=== PATIENT | female | born 1975 | race Caucasian/White ===

== ENCOUNTER 2020-02-07 09:59 | Outpatient (CLI) | payer OTHER, SELFPAY ==
[2020-02-07 10:22] LABS: Hematocrit 40.9 % (35.0-49.0); Hemoglobin 13.9 g/dL (12.0-15.0); Mean Corpuscular Hemoglobin 28.8 pg (27.0-31.0); Mean Corpuscular Volume 84.9 fL (78.0-102.0); Mean Platelet Volume 10.3 fl (9.2-11.8); Platelet Count Result 327 K/mm3 (150-420); Red Blood Count 4.82 M/mm3 (4.20-5.40); Red Cell Distribution Width 12.3 % (11.6-14.4); White Blood Count 6.6 K/mm3 (4.8-10.8)
[2020-02-07 11:24] LABS: Alanine Aminotransferase 23 U/L (14-59); Albumin Level 3.8 g/dL (3.4-5.0); Alkaline Phosphatase 90 U/L (46-116); Anion Gap 14.3 mmol/L (7-16); Aspartate Amino Transferase 14 U/L (15-37); Bilirubin,Total 0.3 mg/dL (0.00-1.00); Blood Urea Nitrogen 18 mg/dL (7-18); Calcium 8.8 mg/dL (8.5-10.1); Carbon Dioxide 26 mmol/L (21-32); Chloride 105 mmol/L (98-108); Estimated Glomerular Filt Rate > 60; Folic Acid 19.8 ng/mL (8.6->20); Glucose 161 mg/dL (70-99); Osmolality Calculated 296 mOsm/kg (285-295); Potassium 4.3 mmol/L (3.5-5.1); Sodium 141 mmol/L (136-145); Total Protein 6.9 g/dL (6.4-8.2); Vitamin B12 324 pg/mL (193-986)
[2020-02-07 11:34] LABS: Thyroid Stimulating Hormone Reflex 0.94 u/IU/mL (0.36-3.74)
== END 2020-02-07 10:00 | disposition home or self-care (01) ==
PROVIDERS: PCP Family Medicine; Visit Provider Family Medicine
DX: I10 Essential (primary) hypertension (principal)
CPT/HCPCS: 36415; 80053; 82607; 82746; 84443; 85027

== ENCOUNTER 2020-04-15 08:23 | Outpatient (CLI) | payer OTHER, SELFPAY ==
--- NOTE | ~2020-04-15 | XR_ITS ---
XR shoulder RT min 2V DATE: 04/15/2020 08:57 INDICATION: Bilateral upper extremity pain including right shoulder pain TECHNIQUE: 4 views COMPARISON: None FINDINGS: No fracture or dislocation, periosteal reaction or bone destruction. There is mild degenera tive change at the acromioclavicular joint. No abnormal soft tissue calcification of the right should er. IMPRESSION: Mild degenerative change at right acromioclavicular joint Reviewed, dictated and finalized at location B.
--- NOTE | ~2020-04-15 | XR_ITS ---
XR elbow RT 2V DATE: 04/15/2020 08:57 INDICATION: Right elbow pain TECHNIQUE: AP and lateral views COMPARISON: None FINDINGS: No fracture or dislocation or joint effusion. No periosteal reaction or bone destruction. IMPRESSION: Negative Reviewed, dictated and finalized at location B. IMPRESSION: Negative
--- NOTE | ~2020-04-15 | XR_ITS ---
XR shoulder LT min 2V DATE: 04/15/2020 08:58 INDICATION: Bilateral upper extremity pain, left shoulder pain TECHNIQUE: 4 views COMPARISON: None FINDINGS: No fracture or dislocation, periosteal reaction or bone destruction or abnormal soft tissue calcification. Normal alignment at the acromioclavicular and glenohumeral joints. IMPRESSION: No significant abnormality Reviewed, dictated and finalized at location B. IMPRESSION: No significant abnormality
--- NOTE | ~2020-04-15 | XR_ITS ---
XR hand LT min 3V DATE: 04/15/2020 08:57 INDICATION: Bilateral upper extremity pain, left hand pain TECHNIQUE: AP and lateral views COMPARISON: None FINDINGS: No fracture or dislocation, periosteal reaction or bone destruction. Joint spaces are relat ively preserved. No erosive change or chondrocalcinosis. IMPRESSION: No significant abnormality Reviewed, dictated and finalized at location B. IMPRESSION: No significant abnormality
--- NOTE | ~2020-04-15 | XR_ITS ---
XR elbow LT 2V DATE: 04/15/2020 08:57 INDICATION: Left elbow pain TECHNIQUE: AP and lateral views COMPARISON: None FINDINGS: No fracture or dislocation or joint effusion. No periosteal reaction or bone destruction. J oint spaces are preserved. IMPRESSION: Negative Reviewed, dictated and finalized at location B. IMPRESSION: Negative
--- NOTE | ~2020-04-15 | XR_ITS ---
XR hand RT min 3V DATE: 04/15/2020 08:57 INDICATION: Bilateral upper extremity joint pain including right hand pain TECHNIQUE: AP and lateral views COMPARISON: None FINDINGS: No fracture, dislocation, periosteal reaction or bone destruction or significant joint spac e narrowing. No erosive change or chondrocalcinosis. IMPRESSION: No significant abnormality Reviewed, dictated and finalized at location B. IMPRESSION: No significant abnormality
[2020-04-15 09:38] LABS: Erythrocyte Sedimentation Rate 7 mm/hr (0-15)
[2020-04-15 10:00] LABS: CRP 0.9 mg/dL (0.0-0.9)
[2020-04-15 10:06] LABS: Rheumatoid Factor Screen Negative (Negative)
[2020-04-18 20:21] LABS: ANA Cascade Screen Negative (Negative)
== END 2020-04-15 08:24 | disposition home or self-care (01) ==
LOC: CHSLAB 08:26
PROVIDERS: PCP Family Medicine; Visit Provider Family Medicine
DX: R52 Pain, unspecified (principal)
CPT/HCPCS: 36415; 73030; 73070; 73130; 85652; 86038; 86140; 86430

== ENCOUNTER 2020-05-12 15:37 | Emergency (ER) | payer OTHER, SELFPAY ==
--- NOTE | ~2020-05-12 | XR_ITS ---
XR hand RT 2V 05/12/2020 16:07 INDICATION: Right hand and thumb pain PROCEDURE: 2 views right hand COMPARISON: 04/15/2020 FINDINGS: Fracture, dislocation or subluxation is not identified. The soft tissues appear within norm al limits. No foreign bodies are identified. IMPRESSION: 1: NO ACUTE BONE OR JOINT ABNORMALITY IDENTIFIED. Reviewed, dictated and finalized at location A.
[2020-05-12 15:50] VITALS: BP 152/87; PULSE 70; RESP 18; TEMP 37.2; O2SAT 99
--- NOTE | 2020-05-12 16:22 | ED.UPPEXIN ---
HPI - Extremity Injury (Upper) General Chief Complaint: Extremity Injury, Upper Stated Complaint: right hand injury Source: patient Mode of arrival: ambulatory Limitations: no limitations History of Present Illness HPI narrative: sh 44-year-old female presents with right thumb pain and swelling with movement after she was injured while playing volleyball, has good range of motion although swelling and pain reduce her range of motion has a good range of motion in her wrist with a strong brisk radial pulse. complaint: injury to: right Onset (ago): day(s) Other Extremity Injury: Left: hand ( Injury and swelling) Other injuries: none Handedness: right Place: outdoors Severity scale (1-10): 3 Relieving factors: cold therapy and immobilization Exacerbating factors: movement of extremity Context: direct blow Associated symptoms: denies other symptoms Related Data Allergies Allergy/AdvReac Type Severity Reaction Status Date / Time No Known Allergies Allergy Verified 04/15/20 07:04 Review of Systems Review of Systems: All systems reviewed & are unremarkable except as noted in HPI and below PMFSH Past Medical History Medical History Depression GERD (gastroesophageal reflux disease) Hypertension Overweight Surgical History Surgical History No history of previous surgery Family History Family History Mother , Age 66 [place] COPD (chronic obstructive pulmonary disease) Rheumatoid arthritis Social History Social History Smoking status: Never smoker Additional living arrangements comments: . 3 Children. Exam Const: General: no acute distress and alert Orientation/consciousness: patient oriented x3 HENMT: Head: normal to inspection Eyes: Conjunctivae: conjunctivae normal Pupils: Equal, round and reactive pupils present EOM: EOMs intact bilaterally Neck: Neck: normal visual inspection, no lymphadenopathy and no meningeal signs Chest: Chest palpation & inspection: normal inspection of the chest Cardio: Rate: regular rate Rhythm: regular rhythm GI: GI Palp: Yes Soft to palpation Auscultation: normal bowel sounds Skin: General skin exam: normal color Rashes: no rashes Extrem: Other: Her right thumb with thenar bruising and swelling Psych: Mental Status: mental status grossly normal Course Course Emergency Course: patient appears comfortable while texting declined any pain medication, reviewed x-ray with patient. Vital Signs Vital signs: Vital Signs Temperature 37.2 C 05/12/20 15:50 Pulse Rate 70 05/12/20 15:50 Respiratory Rate 18 05/12/20 15:50 Blood Pressure 152/87 H 05/12/20 15:50 Pulse Oximetry 99 05/12/20 15:50 Temperature 37.2 C 05/12/20 15:50 Pulse Rate 70 05/12/20 15:50 Respiratory Rate 18 05/12/20 15:50 Blood Pressure 152/87 H 05/12/20 15:50 Pulse Oximetry 99 05/12/20 15:50 MDM - Extremity Injury (Upper) Imaging Data Attestation: I personally reviewed and interpreted this imaging study as follows: Critical Care Time Critical Care Time Critical Care Time: No Discharge Plan Discharge Clinical Impression: Finger sprain Qualifiers: Encounter type: initial encounter Finger: thumb Sprain of finger site: unspecified site Laterality: right Qualified Code(s): S63.601A - Unspecified sprain of right thumb, initial encounter Patient Disposition: Home, Self-Care Condition: Stable Instructions: Antibiotic Form, Finger Sprain (ED) Additional Instructions: continue Sabas wrap to affected hand, can take ibuprofen or Tylenol extra-strength for pain and inflammation, follow-up with primary care physician if symptoms persist or worsen. Prescriptions: No Action carvedilol [Coreg] 12.5 mg tablet 12.5
== END 2020-05-12 16:37 | disposition home or self-care (01) ==
PROVIDERS: Emergency Provider Emergency Medicine; PCP Family Medicine
DX: S63.601A Unspecified sprain of right thumb, initial encounter (principal)
CPT/HCPCS: 73120; 99283

== ENCOUNTER 2020-05-18 08:45 | Outpatient (CLI) | payer OTHER, SELFPAY ==
--- NOTE | ~2020-05-18 | MR_ITS ---
EXAMINATION: MR hand RT wo con DATE: 05/18/2020 10:17 INDICATION: Joint pain in the right hand TECHNIQUE: Magnetic resonance imaging (MRI) of the right hand was performed without intravenous contr ast to include the metacarpals and digits. Sequences included sagittal, coronal, and axial proton-den sity weighted fast spin echo without and with fat saturation. COMPARISON: Right hand radiographs dated 05/12/2020 FINDINGS: Slight ulnar subluxation at the first carpal phalangeal joint. There is attenuation and increased flu id signal at the proximal metacarpal insertion of the radial collateral ligament suspicious for parti al tear. Tiny focus of susceptibility artifact and suggestion of prior scarring along the dorsal/ulna r side of the first metacarpophalangeal joint space which could be related to prior trauma or surgery . The ulnar collateral ligament appears to remain grossly intact. Alignment is otherwise normal. No f racture. There is thickening and mild increased signal of less than fluid intensity involving multiple collate ral ligament complex at the metacarpophalangeal joints including both the radial and ulnar sides of t he second, radial side of the third, radial side of the fourth and radial and ulnar sides of the fift h metacarpophalangeal joints. No fracture or pathologic marrow replacing process. Cortical erosions a t the radial side of the head of the third metacarpal. No other cortical erosions identified. Joint s paces appear relatively preserved on MRI and prior radiographs. No joint effusion. The visualized fle xor and extensor tendons are normal as is the intrinsic musculature of the hand. IMPRESSION: 1. Attenuation of the proximal aspect of the first radial collateral ligament with increased fluid si gnal at its metacarpal origin and with slight ulnar subluxation relative to the head of the first met acarpal suggesting partial tear of the radial collateral ligament. 2. Thickening and mild increased signal of less than fluid intensity at multiple predominantly radial sided collateral ligament complexes at the metacarpophalangeal joints with small erosion at the radi al side of the head of the third metacarpal. The multiplicity of dislocations would argue against tra dori and raises the possibility of an inflammatory arthritis/enthesitis including rheumatoid, psoriati c or reactive arthritis, spondyloarthritis or less likely crystalline deposition disease such as gout or calcium pyrophosphate deposition (CPPD) disease . Reviewed, dictated and finalized at location A. IMPRESSION: 1. Attenuation of the proximal aspect of the first radial collateral ligament w ith increased fluid signal at its metacarpal origin and with slight ulnar sublu xation relative to the head of the first metacarpal suggesting partial tear of the radial collateral ligament. 2. Thickening and mild increased signal of less than fluid intensity at multipl e predominantly radial sided collateral ligament complexes at the metacarpophal angeal joints with small erosion at the radial side of the head of the third me tacarpal. The multiplicity of dislocations would argue against trauma and raise s the possibility of an inflammatory arthritis/enthesitis including rheumatoid, psoriatic or reactive arthritis, spondyloarthritis or less likely crystalline deposition disease such as gout or calcium pyrophosphate deposition (CPPD) dise ase .
== END 2020-05-18 08:46 | disposition home or self-care (01) ==
LOC: CHSIMG 08:47
PROVIDERS: PCP Family Medicine; Visit Provider Family Medicine
DX: M25.541 Pain in joints of right hand (principal)
CPT/HCPCS: 73218

== ENCOUNTER 2020-09-09 11:21 | Outpatient (CLI) | payer OTHER, SELFPAY ==
[2020-09-09 13:46] LABS: SARS-CoV-2 Ag Negative (Negative)
== END 2020-09-09 11:22 | disposition home or self-care (01) ==
LOC: CHSLAB 11:23
PROVIDERS: PCP Family Medicine; Visit Provider Internal Medicine Critical Care Medicine
DX: Z20.828 Contact with and (suspected) exposure to other viral communicable diseases (principal)
CPT/HCPCS: 87426

== ENCOUNTER 2020-09-11 19:59 | Outpatient (CLI) | payer OTHER, SELFPAY | END 2020-09-11 20:00 | disposition home or self-care (01) | LOC: CHSCSM 20:00 | PROVIDERS: PCP Family Medicine; Visit Provider Family Medicine | DX: G47.30 Sleep apnea, unspecified (principal) | CPT/HCPCS: 95810 ==

== ENCOUNTER 2020-12-30 08:47 | Outpatient (NON) | payer OTHER, SELFPAY | END 2020-12-30 08:48 | disposition home or self-care (01) | PROVIDERS: Visit Provider Family Medicine | DX: R31.9 Hematuria, unspecified (principal) | CPT/HCPCS: 87086; 87088 ==

== ENCOUNTER 2021-02-20 10:12 | Outpatient (CLI) | payer OTHER, SELFPAY ==
--- NOTE | ~2021-02-20 | US_ITS ---
US retroperitoneal comp 02/20/2021 10:40 Procedure: Realtime transabdominal ultrasound of the kidneys and bladder. Indication: Gross hematuria Comparison: No prior studies for comparison. Findings: Renal echotexture is normal bilaterally without hydronephrosis, contour deforming mass or r enal calculus. The right kidney measures 12.2 cm and left kidney measures 13.8 cm. Bladder within no rmal limits. Impression: 1: Unremarkable renal ultrasound. No stones, masses or hydronephrosis. Reviewed, dictated and finalized at location B. Impression: 1: Unremarkable renal ultrasound. No stones, masses or hydronephrosis.
== END 2021-02-20 10:13 | disposition home or self-care (01) ==
LOC: CHSIMG 10:13
PROVIDERS: PCP Family Medicine; Visit Provider Family Medicine
DX: R31.0 Gross hematuria (principal)
CPT/HCPCS: 76770

== ENCOUNTER 2021-03-30 14:37 | Emergency (ER) | payer OTHER, SELFPAY ==
--- NOTE | ~2021-03-30 | CT_ITS ---
EXAMINATION: CT abdomen pelvis wo con DATE: 03/30/2021 16:42 INDICATION: Right flank pain and hematuria TECHNIQUE: Computed tomography (CT) of the abdomen and pelvis was performed without intravenous contr ast. Automated exposure control and iterative reconstruction technique were employed. The dose-length product was 1583.53 mGy-cm. COMPARISON: None FINDINGS: Lung bases are clear. Heart size is normal. No pericardial or pleural effusion. Diffuse hepatic steat osis with focal sparing at the gallbladder fossa. Gallbladder, spleen, pancreas and bilateral adrenal glands are normal. Mild right hydroureteronephrosis and mild proximal right hydroureter. Right inter nal ureteral stent in expected position with loops formed in a lower pole calyx of the right kidney a nd in the bladder. There are couple 1 mm stones in the lower pole calyx of the right kidney. No stone s seen along the right ureter. There is some right periureteral inflammatory stranding. Left kidney a nd ureter are normal with no urolithiasis or hydronephrosis. Bladder, uterus and bilateral adnexa are unremarkable. Bowels including the appendix are normal. No free intraperitoneal gas or fluid. No pat hologically enlarged abdominal or pelvic lymphadenopathy. Moderate spondylosis at the lumbosacral mirella ction. IMPRESSION: 1. . Ureteral stranding and mild right hydronephrosis with right internal ureteral stent in expected position. Findings are likely related to recent extraction of a reported 7 mm stone in the ureter. A couple 1 mm stones in a lower pole calyx of the right kidney but no other stones in the right ureter. Reviewed, dictated and finalized at location A. IMPRESSION: 1. . Ureteral stranding and mild right hydronephrosis with right internal urete ral stent in expected position. Findings are likely related to recent extractio n of a reported 7 mm stone in the ureter. A couple 1 mm stones in a lower pole calyx of the right kidney but no other stones in the right ureter.
[2021-03-30 15:30] VITALS: BP 171/97; PULSE 54; RESP 22; TEMP 36.6; O2SAT 99
--- NOTE | 2021-03-30 15:48 | ED.ABDPAIN ---
HPI - Abdominal Pain General Chief Complaint: Urogenital-Female Stated Complaint: abdomen main Source: patient Mode of arrival: ambulatory Limitations: no limitations History of Present Illness HPI narrative: Patient comes in after having a 7mm stone stented on on the right side. She had a stent placed. She has had nausea and emesis and right flank pain, moderately severe to severe, which has been ongoing for the last 2 hours prior to presentation. She comes in because of continued pain. MD elicited complaint: abdominal pain and flank pain Pertinent past history: kidney stones Onset (ago): hour(s) Pain Consistency: constant Location: R flank Quality: cramping, stabbing and sharp Radiation: other (toward groin) Exacerbating factors: nothing Relieving factors: nothing Context: confirms recent surgery/procedure Treatments prior to arrival: NSAIDs and prescription analgesics Related Data Home Medications Medication Instructions Recorded Confirmed cyclobenzaprine 5 mg tablet 5 mg PO QHS PRN tablet 12/30/20 03/30/21 nabumetone 500 mg tablet 500 mg PO BID 12/30/20 03/30/21 carvedilol 25 mg PO BID 03/30/21 03/30/21 gabapentin 300 mg PO BID 03/30/21 03/30/21 methylprednisolone 4 mg PO DAILY 03/30/21 03/30/21 oxybutynin chloride 5 mg PO DAILY 03/30/21 03/30/21 tramadol 50 mg PO PRN 03/30/21 03/30/21 Allergies Allergy/AdvReac Type Severity Reaction Status Date / Time No Known Allergies Allergy Verified 02/13/21 12:29 Review of Systems Constitutional: Constitutional: Reports no additional constitutional complaints Eyes: Eyes: Reports no additional eye complaints ENT: Reports system reviewed and no additional complaints, except as documented Cardiovascular: Cardiovascular: Reports no additional cardiovascular complaints Respiratory: Respiratory: Reports no additional respiratory complaints Gastrointestinal: Gastrointestinal: Reports no additional gastrointestinal complaints Genitourinary: Genitourinary: Reports no additional female genitourinary complaints Musculoskeletal: Musculoskeletal: Reports no additional musculoskeletal complaints Integumentary/Breasts: Skin/Breast: Reports system reviewed and no additional complaints, except as docu Neurologic: Reports system reviewed and no additional complaints, except as documented Psychiatric: Psychiatric: Reports no additional psychiatric complaints Endocrine: Endocrine: Reports no additional endocrine complaints Hematologic/Lymphatic: Hematologic/Lymphatic: Reports no additional hematologic/lymphatic complaints Allergic/Immunologic: Allergic/Immunologic: Reports no additional allergic/immunologic complaints [facility] Past Medical History Medical History Depression GERD (gastroesophageal reflux disease) Hypertension Overweight Pain of right thumb Surgical History Surgical History No history of previous surgery Family History Family History Mother , Age 66 [place] COPD (chronic obstructive pulmonary disease) Rheumatoid arthritis Social History Social History Smoking status: Never smoker Additional living arrangements comments: . 3 Children. Exam Const: General: no acute distress and alert Orientation/consciousness: patient oriented x3 HENMT: Head: normal to inspection Ears: external ears normal and TM's normal bilaterally General nose exam: Normal external nose present Mouth: Yes Normal oral and palatal mucosa present Throat: posterior oropharynx normal Eyes: Conjunctivae: conjunctivae normal Neck: Neck: normal visual inspection Chest: Chest palpation & inspection: normal inspection of the chest Resp: Effort & Inspection: normal respiratory effort Auscultation: clear to auscultation bilaterally Cardio: Rate:
[2021-03-30] MEDS: KETOROLAC (*BKC) 60 MG/2 ML VIAL IM (15:50)
[2021-03-30] MEDS: DEXAMETHASONE SOD PHOS INJ 4 MG/ML VIAL 10 MG IM (15:50)
[2021-03-30] MEDS: ONDANSETRON HCL ODT 4 MG TABLET PO (15:50)
[2021-03-30] MEDS: BACLOFEN 10 MG TABLET 20 MG PO (15:59)
[2021-03-30 16:07] LABS: Hemoglobin 15.1 g/dL (12.0-15.0); Mean Corpuscular HGB Conc 34.3 g/dL (32.0-36.0); Mean Corpuscular Hemoglobin 29.5 pg (27.0-31.0); Mean Corpuscular Volume 86.1 fL (78.0-102.0); Mean Platelet Volume 10.4 fl (9.2-11.8); Platelet Count Result 402 K/mm3 (150-420); Red Blood Count 5.11 M/mm3 (4.20-5.40); Red Cell Distribution Width 12.8 % (11.6-14.4)
[2021-03-30 16:09] LABS: Add Urine Microscopic? YES; Appearance Urine Clear (Clear); Bilirubin Urine 2+ (Negative); Blood Urine 3+ (Negative); Color Urine Orange (Yellow); Glucose Urine UA Trace (Negative); Ketones Urine Negative (Negative); Leukocyte Esterase Ur 2+ LEU/UL (Negative); Nitrate Urine Positive (Negative); Protein Urine 3+ (Negative); Specific Grav Ur 1.025 (1.010-1.020)
[2021-03-30 16:17] LABS: Pregnancy On Board Control Positive; RBC Urine >75 /hpf (0-2); Squamous Epithelial Cell Urine Few /hpf (Few); Urine Pregnancy Test Negative; WBC Urine >75 /hpf (0-3)
[2021-03-30 16:18] LABS: Budding Yeast Urine Present /hpf
[2021-03-30 16:26] LABS: Alanine Aminotransferase 24 U/L (14-59); Alkaline Phosphatase 82 U/L (46-116); Anion Gap 13 mmol/L (8-16); Aspartate Amino Transferase < 10 U/L (15-37); Bilirubin,Total 0.3 mg/dL (0.00-1.00); Blood Urea Nitrogen 18 mg/dL (7-18); Calcium 8.9 mg/dL (8.5-10.1); Carbon Dioxide 27 mmol/L (21-32); Chloride 103 mmol/L (98-108); Estimated CRCL calculation 99 ml/min; Estimated Glomerular Filt Rate > 60; Glucose 95 mg/dL (70-99); Osmolality Calculated 297 mOsm/kg (285-295); Sodium 143 mmol/L (136-145); Total Protein 7.5 g/dL (6.4-8.2)
[2021-03-30 16:35] LABS: White Blood Count 20.9 K/mm3 (4.8-10.8)
[2021-03-30 16:36] LABS: Band Neutrophils Percent 0 % (0-6); Basophils Percent Manual 0 % (0-1); Eosinophils Percent Manual 0 % (1-6); Lymphocytes Absolute Manual 3.76 K/mm3 (1.1-4.5); Lymphocytes Percent Manual 18 % (18-44); Monocytes Absolute Manual 2.71 K/mm3 (0.1-0.90); Monocytes Percent Manual 13 % (3-9); Neutrophils Absolute Manual 14.42 K/mm3 (1.7-7.2); Neutrophils Percent Manual 69 % (46-73); Platelet Estimate Adequate (Adequate)
[2021-03-30 17:56] LABS: Lactic Acid Reflex 1.2 mmol/L (0.4-2.0)
[2021-03-30 18:32] LABS: Bacteria Urine 2+ /hpf
== END 2021-03-30 19:20 | disposition home or self-care (01) ==
PROVIDERS: Emergency Provider Emergency Medicine; PCP Family Medicine
DX: N20.0 Calculus of kidney (principal); N34.2 Other urethritis
CPT/HCPCS: 36415; 74176; 80053; 81001; 81025; 83605; 85025; 87086; 87205; 96365; 96372; 99283; 99284; A9270; J1100; J1885; J2543

== ENCOUNTER 2021-06-02 15:46 | Outpatient (CLI) | payer OTHER, SELFPAY ==
--- NOTE | ~2021-06-02 | XR_ITS ---
EXAMINATION: XR chest 2V 06/02/2021 16:37 INDICATION: Preop chest x-ray. PROCEDURE: 2 view chest COMPARISON: No prior studies for comparison. FINDINGS: The lungs are clear. The cardiomediastinal silhouette is within normal limits. There are no pleural effusions. There is no pneumothorax suspected. IMPRESSION: 1: NO ACUTE CARDIOPULMONARY DISEASE. Reviewed, dictated and finalized at location A.
--- NOTE | 2021-06-02 15:49 | ECG_ITS ---
Measurements Intervals [place] Rate: 61 P: 55 UT: 182 QRS: 57 QRSD: 87 T: 49 QT: 398 QTc: 402 Interpretive Statements SINUS RHYTHM WITH SINUS ARRHYTHMIA NORMAL ECG Electronically Signed On 06-02-2021 16:39:54 CDT by Juan Fitzgerald D.O.
[2021-06-02 16:20] LABS: Hematocrit 41.5 % (35.0-49.0); Hemoglobin 13.9 g/dL (12.0-15.0); Mean Corpuscular HGB Conc 33.5 g/dL (32.0-36.0); Mean Corpuscular Hemoglobin 29.2 pg (27.0-31.0); Mean Corpuscular Volume 87.2 fL (78.0-102.0); Mean Platelet Volume 10.5 fl (9.2-11.8); Platelet Count Result 323 K/mm3 (150-420); Red Blood Count 4.76 M/mm3 (4.20-5.40); Red Cell Distribution Width 12.5 % (11.6-14.4); White Blood Count 8.5 K/mm3 (4.8-10.8)
[2021-06-02 16:31] LABS: Add Urine Microscopic? YES; Appearance Urine Sl Cloudy (Clear); Bilirubin Urine Negative (Negative); Blood Urine 2+ (Negative); Color Urine Light Yellow (Yellow); Glucose Urine UA Negative (Negative); Ketones Urine Negative (Negative); Leukocyte Esterase Ur 1+ (Negative); Nitrate Urine Negative (Negative); Protein Urine Negative (Negative); Urobilinogen Urine 0.2 mg/dL (0.2-1.0)
[2021-06-02 16:36] LABS: Bacteria Urine 2+ /hpf; Squamous Epithelial Cell Urine Moderate /hpf (Few)
[2021-06-02 16:57] LABS: Alanine Aminotransferase 34 U/L (14-59); Alkaline Phosphatase 94 U/L (46-116); Anion Gap 10 mmol/L (8-16); Aspartate Amino Transferase 29 U/L (15-37); Bilirubin,Total 0.3 mg/dL (0.00-1.00); Blood Urea Nitrogen 15 mg/dL (7-18); Carbon Dioxide 26 mmol/L (21-32); Chloride 106 mmol/L (98-108); Estimated Glomerular Filt Rate > 60; Glucose 113 mg/dL (70-99); Osmolality Calculated 295 mOsm/kg (285-295); Potassium 4.8 mmol/L (3.5-5.1); Sodium 142 mmol/L (136-145); Total Protein 6.9 g/dL (6.4-8.2)
== END 2021-06-02 15:47 | disposition home or self-care (01) ==
PROVIDERS: PCP Family Medicine; Visit Provider Family Medicine
DX: Z01.810 Encounter for preprocedural cardiovascular examination (principal)
CPT/HCPCS: 36415; 71046; 80053; 81001; 85027; 93005

== ENCOUNTER 2021-07-14 10:15 | Outpatient (CLI) | payer OTHER, SELFPAY ==
[2021-07-14 12:31] LABS: SARS-CoV-2 RNA PCR Positive (Negative)
== END 2021-07-14 10:16 | disposition home or self-care (01) ==
PROVIDERS: PCP Family Medicine; Visit Provider Family Medicine
DX: U07.1 COVID-19 (principal)
CPT/HCPCS: C9803; U0003; U0005

== ENCOUNTER 2021-10-29 09:29 | Outpatient (CLI) | payer OTHER, SELFPAY ==
--- NOTE | ~2021-10-29 | CT_ITS ---
EXAMINATION: CT sinus wo con DATE: 10/29/2021 09:48 INDICATION: Chronic sinusitis. Bilateral maxillary pressure, congestion TECHNIQUE: Computed tomography (CT) of the paranasal sinuses was performed without contrast. Iterativ e reconstruction technique was employed. Exam dose: 257.43 mGy-cm total exam DLP. COMPARISON: None FINDINGS: Incidentally noted is bilateral hyperostosis frontalis interna. Very prominent leftward deviation of the nasal septum. There is moderate symmetric soft tissue promin ence of the nasal turbinates. Mild intralamellar cell of left middle nasal turbinate There is an approximately 12 mm mucus retention cyst or polyp in the anterior lower right maxillary s inus and approximately 10 mm similar finding in the anterior floor of the left maxillary sinus. There is minimal mucoperiosteal thickening along the lower medial left maxillary sinus wall. The paranasal sinuses are otherwise normally developed and aerated. The mastoid air cells are normally developed and aerated. Middle and inner ear apparatus appear normal bilaterally. IMPRESSION: Very prominent leftward deviation of nasal septum Mild intralamellar cell of left middle nasal turbinate Small mucous retention cyst or polyp of each maxillary sinus Reviewed, dictated and finalized at Location A. Reviewed, dictated and finalized at location B. S VICE PRESIDENT
== END 2021-10-29 09:30 | disposition home or self-care (01) ==
LOC: CHSIMG 09:30
PROVIDERS: PCP Family Medicine; Visit Provider Family Medicine
DX: J32.9 Chronic sinusitis, unspecified (principal)
CPT/HCPCS: 70486

== ENCOUNTER 2021-12-17 13:25 | Outpatient (CLI) | payer OTHER, SELFPAY ==
--- NOTE | ~2021-12-17 | XR_ITS ---
EXAM: XR abdomen/kub 1V HISTORY: 6 month f/u after stone removal done in March COMPARISON: CT abdomen and pelvis 03/30/2021, x-ray abdomen 12/03/2011 FINDINGS: Partially visualized lung bases are clear. Mild degenerative changes in the lumbar spine, bilateral SI joints, pubic symphysis and bilateral hips. Normal bowel gas pattern. Punctate phlebolit hs project over the pelvis. No other abnormal abdominal calcifications. IMPRESSION: No radiographic evidence of nephrolithiasis or stones projecting over the distal collecting system. Reviewed, dictated and finalized at location K. IMPRESSION: No radiographic evidence of nephrolithiasis or stones projecting over the dista l collecting system.
== END 2021-12-17 13:26 | disposition home or self-care (01) ==
LOC: CHSIMG 13:29
PROVIDERS: PCP Family Medicine; Visit Provider Urology
DX: N20.1 Calculus of ureter (principal)
CPT/HCPCS: 74018

== ENCOUNTER 2022-08-12 12:35 | Outpatient (CLI) | payer OTHER, SELFPAY ==
[2022-08-12 13:12] LABS: Hemoglobin A1C 5.5 % (<5.7)
== END 2022-08-12 12:36 | disposition home or self-care (01) ==
LOC: CHSLAB 12:37
PROVIDERS: PCP Family Medicine; Visit Provider Family Medicine
DX: E11.9 Type 2 diabetes mellitus without complications (principal)
CPT/HCPCS: 36415; 83036; 84443

== ENCOUNTER 2022-09-01 15:14 | Outpatient (CLI) | payer OTHER, SELFPAY ==
[2022-09-01 15:38] LABS: Hematocrit 38.8 % (35.0-49.0); Hemoglobin 12.8 g/dL (12.0-15.0); Mean Platelet Volume 10.7 fl (9.2-11.8); Platelet Count Result 298 K/mm3 (150-420); Red Blood Count 4.41 M/mm3 (4.20-5.40); Red Cell Distribution Width 12.9 % (11.6-14.4); White Blood Count 12.2 K/mm3 (4.8-10.8)
[2022-09-01 16:28] LABS: Anion Gap 7 mmol/L (8-16); Blood Urea Nitrogen 17 mg/dL (7-18); Calcium 8.6 mg/dL (8.5-10.1); Carbon Dioxide 30 mmol/L (21-32); Chloride 104 mmol/L (98-108); Estimated Glomerular Filt Rate > 60; Glucose 83 mg/dL (70-99); Osmolality Calculated 292 mOsm/kg (285-295); Potassium 4.3 mmol/L (3.5-5.1); Sodium 141 mmol/L (136-145)
== END 2022-09-01 15:15 | disposition home or self-care (01) ==
LOC: CHSLAB 15:17
PROVIDERS: PCP Family Medicine; Visit Provider Family Medicine
DX: Z01.818 Encounter for other preprocedural examination (principal)
CPT/HCPCS: 36415; 80048; 85027

== ENCOUNTER 2022-10-27 14:43 | Outpatient (CLI) | payer OTHER, SELFPAY ==
[2022-10-27 14:58] LABS: Hematocrit 38.6 % (35.0-49.0); Hemoglobin 12.7 g/dL (12.0-15.0); Mean Corpuscular HGB Conc 32.9 g/dL (32.0-36.0); Mean Corpuscular Hemoglobin 28.8 pg (27.0-31.0); Mean Corpuscular Volume 87.5 fL (78.0-102.0); Mean Platelet Volume 10.6 fl (9.2-11.8); Platelet Count Result 346 K/mm3 (150-420); Red Blood Count 4.41 M/mm3 (4.20-5.40); Red Cell Distribution Width 13.3 % (11.6-14.4); White Blood Count 8.6 K/mm3 (4.8-10.8)
[2022-10-27 15:56] LABS: Alanine Aminotransferase 19 U/L (14-59); Albumin Level 3.8 g/dL (3.4-5.0); Alkaline Phosphatase 93 U/L (46-116); Anion Gap 7 mmol/L (8-16); Aspartate Amino Transferase 14 U/L (15-37); Bilirubin,Total 0.3 mg/dL (0.00-1.00); Blood Urea Nitrogen 15 mg/dL (7-18); Calcium 9.6 mg/dL (8.5-10.1); Carbon Dioxide 27 mmol/L (21-32); Chloride 101 mmol/L (98-108); Estimated Glomerular Filt Rate > 60; Glucose 93 mg/dL (70-99); Osmolality Calculated 280 mOsm/kg (285-295); Potassium 4.6 mmol/L (3.5-5.1); Sodium 135 mmol/L (136-145); Total Protein 6.9 g/dL (6.4-8.2)
== END 2022-10-27 14:44 | disposition home or self-care (01) ==
LOC: CHSLAB 14:45
PROVIDERS: PCP Family Medicine; Visit Provider Family Medicine
DX: Z01.818 Encounter for other preprocedural examination (principal); S91.301A Unspecified open wound, right foot, initial encounter
CPT/HCPCS: 36415; 80053; 85027; 87070; 87205

== ENCOUNTER 2022-11-03 14:57 | Outpatient (CLI) | payer OTHER, SELFPAY ==
[2022-11-03 15:39] LABS: Monoscreen Negative (Negative); Negative Monotest Control Negative (Negative); Positive Monotest Control Positive (Positive)
[2022-11-03 15:58] LABS: Influenza A QL RT-PCR Negative (Negative); Influenza B QL RT-PCR Negative (Negative); RSV RNA, RT-PCR Negative (Negative); SARS-CoV-2 RNA PCR Negative (Negative)
[2022-11-03 16:26] LABS: Strep Group A RT-PCR NOT DETECTED (Negative)
== END 2022-11-03 14:58 | disposition home or self-care (01) ==
PROVIDERS: PCP Family Medicine; Visit Provider Family Medicine
DX: J06.9 Acute upper respiratory infection, unspecified (principal); Z20.822 Contact with and (suspected) exposure to COVID-19
CPT/HCPCS: 36415; 86308; 87637; 87651

== ENCOUNTER 2023-06-09 17:47 | Outpatient (NON) | payer SELFPAY ==
[2023-06-09 18:06] LABS: Appearance Urine Clear (Clear); Bilirubin Urine Negative (Negative); Blood Urine 3+ (Negative); Color Urine Light Yellow (Yellow); Glucose Urine UA Negative (Negative); Ketones Urine Negative (Negative); Leukocyte Esterase Ur Trace LEU/UL (Negative); Nitrate Urine Negative (Negative); Protein Urine Negative (Negative); Urobilinogen Urine 0.2 mg/dL (0.2-1.0)
[2023-06-09 18:32] LABS: Add Urine Microscopic? YES; Calcium Oxalate Crystals Urine Present /hpf; Squamous Epithelial Cell Urine Few /hpf (Few)
[2023-06-09 18:33] LABS: Bacteria Urine 1+ /hpf
== END 2023-06-09 17:48 | disposition home or self-care (01) ==
LOC: CHSLAB 17:48
PROVIDERS: Visit Provider Nurse Practitioner Family
DX: N39.0 Urinary tract infection, site not specified (principal)
CPT/HCPCS: 81001

== ENCOUNTER 2023-09-01 13:53 | Outpatient (CLI) | payer OTHER, SELFPAY ==
--- NOTE | ~2023-09-01 | MM_ITS ---
EXAMINATION: MM screening radames BI w tommy HISTORY: Screening mammogram TECHNIQUE: Craniocaudal and mediolateral oblique 3-D tomosynthesis images were obtained and synthetic 2-D images were generated. CAD analysis was submitted and interpreted. COMPARISON: No prior mammogram is available for comparison at this institution. Baseline examination. BREAST PARENCHYMAL COMPOSITION: The breasts are heterogeneously dense, which may obscure small masses . FINDINGS: There are scattered bilateral benign microcalcifications. There is no evidence of suspiciou s mass, calcification, or architectural distortion to suggest malignancy in either breast. There has been no suspicious interval change. IMPRESSION: 1. No mammographic evidence of malignancy. 2. Recommend routine screening mammography in one year. BI-RADS Category 2: Benign finding(s). Reviewed, dictated and finalized at location A. TREATING OPERATOR
[2023-09-02 13:04] LABS: Trichomonas Vag PCR NOT DETECTED (NOT DETECTE)
== END 2023-09-01 13:54 | disposition home or self-care (01) ==
PROVIDERS: Nurse Practitioner Family; PCP Family Medicine; Visit Provider Family Medicine
DX: Z12.31 Encounter for screening mammogram for malignant neoplasm of breast (principal); Z20.2 Contact with and (suspected) exposure to infections with a predominantly sexual mode of transmission; Z12.4 Encounter for screening for malignant neoplasm of cervix; Z11.51 Encounter for screening for human papillomavirus (HPV)
CPT/HCPCS: 77063; 77067; 87491; 87591; 87624; 87625; 87661; 88141; 88175; G0145